=== PATIENT | male | born 1975 | race African-American/Black ===

== ENCOUNTER 2017-09-23 18:15 | Emergency (ER) | payer OTHER, MEDICARE, MEDICAID ==
[2017-09-23 18:31] VITALS: BP 145/96
[2017-09-23] MEDS ORDERED: HYDROCODONE/ACETAMINOPHEN 5-325 MG TABLET PO ONE (19:46)
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
== END 2017-09-23 21:09 | disposition home or self-care (01) ==
LOC: ER 18:15
DX: M54.5 Low back pain (principal); M79.1 Myalgia; F17.210 Nicotine dependence, cigarettes, uncomplicated; V89.2XXA Person injured in unspecified motor-vehicle accident, traffic, initial encounter
CPT/HCPCS: 72131; 99284